=== PATIENT | female | born 1980 | race Caucasian/White ===

== ENCOUNTER 2019-01-03 14:00 | Inpatient (IN) | payer OTHER ==
[~2019-01-03] VITALS: Ht 170.2 cm; Wt 97.5 kg
[2019-01-03 14:00] VITALS: BP 118/68
[2019-01-03 15:00] VITALS: BP 119/91
[2019-01-03 15:11] VITALS: BP 118/68
[2019-01-03] MEDS ORDERED: INFLUENZA VIRUS VACCINE QVS 2019-20 (3YR+)/PF 60 MCG/0.5 ML SYRINGE IM ONE (17:15)
[2019-01-03] MEDS ORDERED: ClonazePAM 1 MG TABLET PO PRN (17:15)
[2019-01-03] MEDS ORDERED: ZOLPIDEM TARTRATE 5 MG TABLET PO PRN (17:15)
[2019-01-03] MEDS ORDERED: NALOXONE HCL 0.4 MG/ML VIAL IVP PRN (17:30)
[2019-01-03] MEDS: OxyCODONE HCL 10 MG IR TABLET PO PRN ×2 (17:44→21:57)
[2019-01-03] MEDS ORDERED: NITROFURANTOIN MACROCRYSTAL 100 MG CAPSULE PO ONE (19:45)
[2019-01-03] MEDS: METHOCARBAMOL 750 MG TABLET PO SCH (20:11)
[2019-01-03] MEDS: LevETIRAcetam 500 MG TABLET PO SCH (20:11)
[2019-01-03] MEDS: PRAZOSIN HCL 1 MG CAPSULE PO SCH ×2 (20:12→21:00)
[2019-01-03] MEDS: GABAPENTIN 400 MG CAPSULE PO SCH (20:12)
[2019-01-03] MEDS: AMITRIPTYLINE HCL 50 MG TABLET PO SCH (20:13)
[2019-01-03] MEDS: ClonazePAM 1 MG TABLET PO SCH (20:16)
[2019-01-03] MEDS: OxyCODONE HCL 10 MG ER TABLET PO SCH (20:17)
[2019-01-03] MEDS ORDERED: NITROFURANTOIN MACROCRYSTAL 50 MG CAPSULE PO SCH (21:00)
[2019-01-03] MEDS: SENNA 187 MG TABLET PO SCH (21:00)
[2019-01-03] MEDS: DOCUSATE SODIUM 100 MG CAPSULE PO SCH (21:00)
[2019-01-04] MEDS: 0.9% SODIUM CHLORIDE 10 ML SYRINGE IVP SCH ×3 (00:07→16:00)
[2019-01-04 00:30] VITALS: BP 113/72
[2019-01-04] MEDS: OxyCODONE HCL 10 MG IR TABLET PO PRN ×4 (02:38→18:05)
[2019-01-04 07:38] LABS: BASOPHILS % (AUTO) 1.4 % (0.0-2.0); EOSINOPHILS % (AUTO) 4.4 % (1.0-6.0); HEMATOCRIT 41.2 % (36-46); HEMOGLOBIN 13.6 g/dL (12.0-16.0); LYMPHOCYTES % (AUTO) 51.1 % (22.0-44.0); MEAN CORPUSCULAR HEMOGLOBIN 27.5 pg (26.0-34.0); MEAN CORPUSCULAR HGB CONC 32.9 G/dL (31.0-37.0); MEAN CORPUSCULAR VOLUME 83 fL (80-100); MONOCYTES # (AUTO) 0.3 K/uL (0.1-1.0); MONOCYTES % (AUTO) 7.9 % (2.0-9.0); NEUTROPHILS # (AUTO) 1.4 K/uL (1.8-7.7); NEUTROPHILS % (AUTO) 35.2 % (40.0-70.0); PLATELET COUNT (AUTO) 245 K/uL (150-450); RED BLOOD CELL COUNT(AUTO) 4.94 MIL/uL (4.00-5.20); RED CELL DISTRIBUTION WIDTH 15.1 % (11.5-14.5)
[2019-01-04 07:53] LABS: ALANINE AMINOTRANSFERASE 26 U/L (12-78); ALBUMIN 3.8 g/dL (3.4-5.0); ALKALINE PHOSPHATASE 92 U/L (46-116); ANION GAP 7 mmol/L (8-16); ASPARTATE AMINOTRANSFERASE 23 U/L (15-37); BILIRUBIN,TOTAL 0.3 mg/dL (0.1-1.0); CARBON DIOXIDE 27 mmol/L (22-29); CHLORIDE 103 mmol/L (98-107); CREATININE 0.98 mg/dL (0.60-1.30); GLOMERULAR FILTR. RATE CALC > 60 mL/min (>60); GLUCOSE,RANDOM 95 mg/dL (70-110); SODIUM SERUM 137 mmol/L (136-145); TOTAL PROTEIN, SERUM 7.8 g/dL (6.4-8.2); UREA NITROGEN, BLOOD 15 mg/dL (7-18)
[2019-01-04 08:02] VITALS: BP 91/60
[2019-01-04] MEDS: OxyCODONE HCL 10 MG ER TABLET PO SCH ×2 (08:06→20:38)
[2019-01-04] MEDS: GABAPENTIN 400 MG CAPSULE PO SCH ×4 (08:06→20:38)
[2019-01-04] MEDS: ESCITALOPRAM OXALATE 10 MG TABLET PO SCH (08:07)
[2019-01-04] MEDS: LevETIRAcetam 500 MG TABLET PO SCH ×2 (08:07→20:38)
[2019-01-04] MEDS: METHOCARBAMOL 750 MG TABLET PO SCH ×4 (08:07→20:38)
[2019-01-04] MEDS: ClonazePAM 1 MG TABLET PO SCH ×2 (08:08→20:38)
[2019-01-04] MEDS: DOCUSATE SODIUM 100 MG CAPSULE PO SCH ×2 (08:12→21:00)
[2019-01-04] MEDS ORDERED: HYDROmorphone HCL 2 MG TABLET PO ONE (10:00)
[2019-01-04 16:00] VITALS: BP 102/54
[2019-01-04] MEDS: NITROFURANTOIN MACROCRYSTAL 50 MG CAPSULE PO SCH (20:37)
[2019-01-04] MEDS: AMITRIPTYLINE HCL 50 MG TABLET PO SCH (20:38)
[2019-01-04] MEDS: PRAZOSIN HCL 1 MG CAPSULE PO SCH (21:00)
[2019-01-04] MEDS: SENNA 187 MG TABLET PO SCH (21:00)
[2019-01-04 21:03] LABS: APPEARANCE,URINE CLOUDY (CLEAR); BILIRUBIN,URINE NEGATIVE (NEGATIVE); GLUCOSE, URINE (UA) NEGATIVE (NEGATIVE); KETONES,URINE NEGATIVE (NEGATIVE); LEUKOCYTE ESTERASE ,URINE MODERATE (NEGATIVE); NITRATE,URINE NEGATIVE (NEGATIVE); OCCULT BLOOD,URINE LARGE (NEGATIVE); PROTEIN,URINE NEGATIVE (NEGATIVE); UROBILINOGEN,URINE 0.2 mg/dL (<=1.0)
[2019-01-04 21:04] LABS: BACTERIA,URINE Few /HPF (None Seen); RBC,URINE 26-50 /HPF (0-2); SQUAMOUS EPITHELIAL CELL,UR Moderate /LPF (None Seen)
[2019-01-04] MEDS: HYDROmorphone HCL 2 MG TABLET PO PRN (21:15)
[2019-01-05 05:42] VITALS: BP 100/55
[2019-01-05] MEDS: HYDROmorphone HCL 2 MG TABLET PO PRN ×4 (05:42→20:51)
[2019-01-05 08:30] VITALS: BP 101/69
[2019-01-05] MEDS: ClonazePAM 1 MG TABLET PO SCH ×2 (08:34→20:14)
[2019-01-05] MEDS: METHOCARBAMOL 750 MG TABLET PO SCH ×4 (08:35→20:14)
[2019-01-05] MEDS: GABAPENTIN 400 MG CAPSULE PO SCH ×4 (08:36→20:12)
[2019-01-05] MEDS: OxyCODONE HCL 10 MG ER TABLET PO SCH ×2 (08:36→20:14)
[2019-01-05] MEDS: ESCITALOPRAM OXALATE 10 MG TABLET PO SCH (08:36)
[2019-01-05] MEDS: LevETIRAcetam 500 MG TABLET PO SCH ×2 (08:36→20:13)
[2019-01-05] MEDS: ACETAMINOPHEN 325 MG TABLET PO PRN (08:37)
[2019-01-05] MEDS: LIDOCAINE 5% TRANSDERMAL PATCH TD SCH (08:37)
[2019-01-05] MEDS: DOCUSATE SODIUM 100 MG CAPSULE PO SCH ×2 (09:00→20:19)
[2019-01-05] MEDS ORDERED: LIDOCAINE 1% 10 ML VIAL INJ ONE (12:30)
[2019-01-05] MEDS ORDERED: BUPIVACAINE HCL/PF 0.5% 10 ML VIAL INJ ONE (12:30)
[2019-01-05] MEDS ORDERED: TRIAMCINOLONE ACETONIDE 40 MG/ML VIAL IM ONE (12:30)
[2019-01-05 16:15] VITALS: BP 107/67
[2019-01-05 20:10] VITALS: BP 105/64
[2019-01-05] MEDS: NITROFURANTOIN MACROCRYSTAL 50 MG CAPSULE PO SCH (20:13)
[2019-01-05] MEDS: AMITRIPTYLINE HCL 50 MG TABLET PO SCH (20:13)
[2019-01-05] MEDS: -LIDODERM PATCH NOTE- MISC SCH (20:15)
[2019-01-05] MEDS: SENNA 187 MG TABLET PO SCH (20:19)
[2019-01-05] MEDS: PRAZOSIN HCL 1 MG CAPSULE PO SCH (20:19)
[2019-01-06 01:16] VITALS: BP 117/73
[2019-01-06] MEDS: HYDROmorphone HCL 2 MG TABLET PO PRN ×5 (01:16→21:51)
[2019-01-06] MEDS: GABAPENTIN 400 MG CAPSULE PO SCH ×4 (08:22→20:56)
[2019-01-06] MEDS: ESCITALOPRAM OXALATE 10 MG TABLET PO SCH (08:22)
[2019-01-06] MEDS: ClonazePAM 1 MG TABLET PO SCH ×2 (08:22→20:47)
[2019-01-06] MEDS: OxyCODONE HCL 10 MG ER TABLET PO SCH ×2 (08:22→20:48)
[2019-01-06] MEDS: LevETIRAcetam 500 MG TABLET PO SCH ×2 (08:22→20:48)
[2019-01-06] MEDS: LIDOCAINE 5% TRANSDERMAL PATCH TD SCH (08:23)
[2019-01-06] MEDS: METHOCARBAMOL 750 MG TABLET PO SCH ×4 (08:23→20:47)
[2019-01-06] MEDS: DOCUSATE SODIUM 100 MG CAPSULE PO SCH ×2 (08:26→20:48)
[2019-01-06 15:59] VITALS: BP 114/53
[2019-01-06] MEDS: NITROFURANTOIN MACROCRYSTAL 50 MG CAPSULE PO SCH (20:48)
[2019-01-06] MEDS: AMITRIPTYLINE HCL 50 MG TABLET PO SCH (20:48)
[2019-01-06] MEDS: SENNA 187 MG TABLET PO SCH (20:49)
[2019-01-06] MEDS: PRAZOSIN HCL 1 MG CAPSULE PO SCH (20:50)
[2019-01-06] MEDS: -LIDODERM PATCH NOTE- MISC SCH (21:00)
[2019-01-06] MEDS ORDERED: PredniSONE 20 MG TABLET PO ONE (21:30)
[2019-01-06] MEDS ORDERED: LORazepam 2 MG/ML VIAL IVP PRN (21:30)
[2019-01-07] MEDS: 0.9% SODIUM CHLORIDE 10 ML SYRINGE IVP SCH ×3 (00:39→19:03)
[2019-01-07 00:46] VITALS: BP 100/71
[2019-01-07] MEDS: HYDROmorphone HCL 2 MG TABLET PO PRN ×5 (04:02→21:35)
[2019-01-07] MEDS ORDERED: LORazepam 2 MG/ML VIAL IVP ONE ×2 (06:00→14:45)
[2019-01-07 07:33] VITALS: BP 90/65
[2019-01-07] MEDS: ClonazePAM 1 MG TABLET PO SCH ×2 (07:52→20:20)
[2019-01-07] MEDS: OxyCODONE HCL 10 MG ER TABLET PO SCH ×2 (07:53→20:20)
[2019-01-07] MEDS: LevETIRAcetam 500 MG TABLET PO SCH ×2 (07:53→20:20)
[2019-01-07] MEDS: GABAPENTIN 400 MG CAPSULE PO SCH ×4 (07:53→20:20)
[2019-01-07] MEDS: METHOCARBAMOL 750 MG TABLET PO SCH ×4 (07:53→20:20)
[2019-01-07] MEDS: ESCITALOPRAM OXALATE 10 MG TABLET PO SCH (07:53)
[2019-01-07] MEDS: LIDOCAINE 5% TRANSDERMAL PATCH TD SCH (07:54)
[2019-01-07] MEDS: DOCUSATE SODIUM 100 MG CAPSULE PO SCH ×2 (09:00→20:20)
[2019-01-07] MEDS ORDERED: GADOBUTROL 1 MMOL/ML 10 ML VIAL IVP ONE (09:17)
[2019-01-07] MEDS ORDERED: MethylPREDNISolone SOD SUCC 1,000 MG in SODIUM CHLORIDE 0.9% 50 ML IV SCH (14:00)
[2019-01-07] MEDS ORDERED: SODIUM CHLORIDE 0.9% 100 ML ONE (18:54)
[2019-01-07] MEDS: MethylPREDNISolone SOD SUCC 1,000 MG in SODIUM CHLORIDE 0.9% 50 ML IV SCH (19:03)
[2019-01-07 19:42] VITALS: BP 114/79
[2019-01-07] MEDS: AMITRIPTYLINE HCL 50 MG TABLET PO SCH (20:20)
[2019-01-07] MEDS: NITROFURANTOIN MACROCRYSTAL 50 MG CAPSULE PO SCH (20:20)
[2019-01-07] MEDS: -LIDODERM PATCH NOTE- MISC SCH (20:20)
[2019-01-07] MEDS: SENNA 187 MG TABLET PO SCH (20:21)
[2019-01-07] MEDS: PRAZOSIN HCL 1 MG CAPSULE PO SCH (20:21)
[2019-01-08] MEDS: HYDROmorphone HCL 2 MG TABLET PO PRN ×6 (01:36→22:34)
[2019-01-08] MEDS: 0.9% SODIUM CHLORIDE 10 ML SYRINGE IVP SCH ×4 (01:37→22:41)
[2019-01-08 07:30] VITALS: BP 109/68
[2019-01-08] MEDS: ClonazePAM 1 MG TABLET PO SCH ×2 (08:24→20:48)
[2019-01-08] MEDS: LevETIRAcetam 500 MG TABLET PO SCH ×2 (08:24→20:48)
[2019-01-08] MEDS: GABAPENTIN 400 MG CAPSULE PO SCH ×4 (08:24→20:48)
[2019-01-08] MEDS: OxyCODONE HCL 10 MG ER TABLET PO SCH ×2 (08:24→20:49)
[2019-01-08] MEDS: ESCITALOPRAM OXALATE 10 MG TABLET PO SCH (08:24)
[2019-01-08] MEDS: METHOCARBAMOL 750 MG TABLET PO SCH ×4 (08:24→20:48)
[2019-01-08] MEDS: LIDOCAINE 5% TRANSDERMAL PATCH TD SCH (08:25)
[2019-01-08] MEDS: DOCUSATE SODIUM 100 MG CAPSULE PO SCH ×2 (08:28→20:50)
[2019-01-08] MEDS ORDERED: GADOBUTROL 1 MMOL/ML 10 ML VIAL IVP ONE (08:28)
[2019-01-08] MEDS ORDERED: LORazepam 2 MG/ML VIAL IVP ONE (10:00)
[2019-01-08 16:20] VITALS: BP 112/82
[2019-01-08] MEDS: ACETAMINOPHEN 325 MG TABLET PO PRN (16:33)
[2019-01-08] MEDS: MethylPREDNISolone SOD SUCC 1,000 MG in SODIUM CHLORIDE 0.9% 50 ML IV SCH (17:15)
[2019-01-08] MEDS: NITROFURANTOIN MACROCRYSTAL 50 MG CAPSULE PO SCH (20:48)
[2019-01-08] MEDS: AMITRIPTYLINE HCL 50 MG TABLET PO SCH (20:48)
[2019-01-08] MEDS: -LIDODERM PATCH NOTE- MISC SCH (20:49)
[2019-01-08] MEDS: SENNA 187 MG TABLET PO SCH (20:49)
[2019-01-08] MEDS: PRAZOSIN HCL 1 MG CAPSULE PO SCH (20:50)
[2019-01-08 23:41] VITALS: BP 104/61
[2019-01-09] MEDS: HYDROmorphone HCL 2 MG TABLET PO PRN ×5 (04:09→22:17)
[2019-01-09 06:15] LABS: BASOPHILS % (AUTO) 0.1 % (0.0-2.0); EOSINOPHILS % (AUTO) 0 % (1.0-6.0); HEMATOCRIT 37.6 % (36-46); HEMOGLOBIN 12.6 g/dL (12.0-16.0); LYMPHOCYTES # (AUTO) 0.5 K/uL (1.0-4.8); LYMPHOCYTES % (AUTO) 5.4 % (22.0-44.0); MEAN CORPUSCULAR HGB CONC 33.5 G/dL (31.0-37.0); MEAN CORPUSCULAR VOLUME 84 fL (80-100); MONOCYTES # (AUTO) 0.1 K/uL (0.1-1.0); PLATELET COUNT (AUTO) 231 K/uL (150-450); RED CELL DISTRIBUTION WIDTH 14.5 % (11.5-14.5)
[2019-01-09 06:22] LABS: NEUTROPHILS % (AUTO) 93.5 % (40.0-70.0)
[2019-01-09 06:29] LABS: ANION GAP 11 mmol/L (8-16); CALCIUM, TOTAL 8.9 mg/dL (8.8-10.5); CARBON DIOXIDE 25 mmol/L (22-29); CHLORIDE 103 mmol/L (98-107); CREATININE 0.97 mg/dL (0.60-1.30); GLOMERULAR FILTR. RATE CALC > 60 mL/min (>60); GLUCOSE,RANDOM 190 mg/dL (70-110); POTASSIUM 4.1 mmol/L (3.5-5.1); SODIUM SERUM 139 mmol/L (136-145); UREA NITROGEN, BLOOD 11 mg/dL (7-18)
[2019-01-09] MEDS: ERGOCALCIFEROL (VIT D2) 50,000 UNITS CAPSULE PO SCH (08:44)
[2019-01-09] MEDS: METHOCARBAMOL 750 MG TABLET PO SCH ×4 (08:44→21:29)
[2019-01-09] MEDS: ESCITALOPRAM OXALATE 10 MG TABLET PO SCH (08:44)
[2019-01-09 08:45] VITALS: BP 105/52
[2019-01-09] MEDS: LevETIRAcetam 500 MG TABLET PO SCH ×2 (08:45→21:30)
[2019-01-09] MEDS: ClonazePAM 1 MG TABLET PO SCH ×2 (08:45→21:29)
[2019-01-09] MEDS: GABAPENTIN 400 MG CAPSULE PO SCH ×4 (08:45→21:30)
[2019-01-09] MEDS: FLUCONAZOLE 100 MG TABLET PO SCH (08:45)
[2019-01-09] MEDS: LIDOCAINE 5% TRANSDERMAL PATCH TD SCH (08:47)
[2019-01-09] MEDS: OxyCODONE HCL 10 MG ER TABLET PO SCH ×2 (08:47→21:30)
[2019-01-09] MEDS: 0.9% SODIUM CHLORIDE 10 ML SYRINGE IVP SCH ×3 (08:48→22:39)
[2019-01-09 08:52] LABS: APPEARANCE,URINE CLEAR (CLEAR); BILIRUBIN,URINE NEGATIVE (NEGATIVE); GLUCOSE, URINE (UA) 100 mg/dL (NEGATIVE); KETONES,URINE NEGATIVE (NEGATIVE); NITRATE,URINE NEGATIVE (NEGATIVE); OCCULT BLOOD,URINE NEGATIVE (NEGATIVE); PH,URINE 5.5 (5.0-8.0); PROTEIN,URINE NEGATIVE (NEGATIVE); UROBILINOGEN,URINE 0.2 mg/dL (<=1.0)
[2019-01-09 08:54] LABS: BACTERIA,URINE None Seen /HPF (None Seen); LEUKOCYTE ESTERASE ,URINE SMALL (NEGATIVE); RBC,URINE None Seen /HPF (0-2); SQUAMOUS EPITHELIAL CELL,UR Rare /LPF (None Seen)
[2019-01-09] MEDS: DOCUSATE SODIUM 100 MG CAPSULE PO SCH ×2 (09:00→21:00)
[2019-01-09 15:20] VITALS: BP 103/59
[2019-01-09] MEDS: MethylPREDNISolone SOD SUCC 1,000 MG in SODIUM CHLORIDE 0.9% 50 ML IV SCH (16:20)
[2019-01-09] MEDS ORDERED: SODIUM CHLORIDE 0.9% 100 ML ONE (16:23)
[2019-01-09] MEDS: SENNA 187 MG TABLET PO SCH (21:00)
[2019-01-09] MEDS: PRAZOSIN HCL 1 MG CAPSULE PO SCH (21:00)
[2019-01-09] MEDS: AMITRIPTYLINE HCL 50 MG TABLET PO SCH (21:29)
[2019-01-09] MEDS: NITROFURANTOIN MACROCRYSTAL 50 MG CAPSULE PO SCH (21:30)
[2019-01-09] MEDS: -LIDODERM PATCH NOTE- MISC SCH (21:30)
[2019-01-10] VITALS: BP 122/77
[2019-01-10] MEDS: HYDROmorphone HCL 2 MG TABLET PO PRN ×5 (03:43→21:10)
[2019-01-10 07:30] VITALS: BP 107/63
[2019-01-10] MEDS: OxyCODONE HCL 10 MG ER TABLET PO SCH ×2 (08:13→20:04)
[2019-01-10] MEDS: GABAPENTIN 400 MG CAPSULE PO SCH ×4 (08:13→20:05)
[2019-01-10] MEDS: METHOCARBAMOL 750 MG TABLET PO SCH ×4 (08:14→20:04)
[2019-01-10] MEDS: DOCUSATE SODIUM 100 MG CAPSULE PO SCH ×2 (08:14→20:03)
[2019-01-10] MEDS: LevETIRAcetam 500 MG TABLET PO SCH ×2 (08:14→20:05)
[2019-01-10] MEDS: ESCITALOPRAM OXALATE 10 MG TABLET PO SCH (08:14)
[2019-01-10] MEDS: LIDOCAINE 5% TRANSDERMAL PATCH TD SCH (08:15)
[2019-01-10] MEDS: ClonazePAM 1 MG TABLET PO SCH ×2 (08:19→20:04)
[2019-01-10] MEDS: 0.9% SODIUM CHLORIDE 10 ML SYRINGE IVP SCH ×2 (08:22→15:54)
[2019-01-10] MEDS: FLUCONAZOLE 100 MG TABLET PO SCH (08:48)
[2019-01-10 15:50] VITALS: BP 136/84
[2019-01-10] MEDS: -LIDODERM PATCH NOTE- MISC SCH (20:02)
[2019-01-10] MEDS: PRAZOSIN HCL 1 MG CAPSULE PO SCH (20:03)
[2019-01-10] MEDS: SENNA 187 MG TABLET PO SCH (20:04)
[2019-01-10] MEDS: AMITRIPTYLINE HCL 50 MG TABLET PO SCH (20:04)
[2019-01-10] MEDS: NITROFURANTOIN MACROCRYSTAL 50 MG CAPSULE PO SCH (20:05)
[2019-01-11 01:52] VITALS: BP 116/71
[2019-01-11] MEDS: 0.9% SODIUM CHLORIDE 10 ML SYRINGE IVP SCH ×3 (01:57→15:54)
[2019-01-11 07:45] VITALS: BP 105/78
[2019-01-11] MEDS: LIDOCAINE 5% TRANSDERMAL PATCH TD SCH (08:05)
[2019-01-11] MEDS: ClonazePAM 1 MG TABLET PO SCH ×2 (08:05→20:11)
[2019-01-11] MEDS: METHOCARBAMOL 750 MG TABLET PO SCH ×4 (08:05→20:04)
[2019-01-11] MEDS: GABAPENTIN 400 MG CAPSULE PO SCH ×4 (08:06→20:11)
[2019-01-11] MEDS: MULTIVITAMINS WITH MINERALS, THERAPEUTIC TABLET PO SCH (08:06)
[2019-01-11] MEDS: FLUCONAZOLE 100 MG TABLET PO SCH (08:06)
[2019-01-11] MEDS: LevETIRAcetam 500 MG TABLET PO SCH ×2 (08:06→20:05)
[2019-01-11] MEDS: ESCITALOPRAM OXALATE 10 MG TABLET PO SCH (08:06)
[2019-01-11] MEDS: ACETAMINOPHEN 325 MG TABLET PO PRN (08:07)
[2019-01-11] MEDS: OxyCODONE HCL 10 MG ER TABLET PO SCH ×2 (08:07→20:04)
[2019-01-11 08:24] LABS: BASOPHILS % (AUTO) 0.4 % (0.0-2.0); CALCIUM, TOTAL 8.4 mg/dL (8.8-10.5); CREATININE 1.07 mg/dL (0.60-1.30); EOSINOPHILS % (AUTO) 0.2 % (1.0-6.0); HEMATOCRIT 37.6 % (36-46); HEMOGLOBIN 12.7 g/dL (12.0-16.0); LYMPHOCYTES # (AUTO) 1.2 K/uL (1.0-4.8); MEAN CORPUSCULAR HEMOGLOBIN 28.2 pg (26.0-34.0); MEAN CORPUSCULAR HGB CONC 33.8 G/dL (31.0-37.0); MEAN CORPUSCULAR VOLUME 83 fL (80-100); MONOCYTES # (AUTO) 0.9 K/uL (0.1-1.0); MONOCYTES % (AUTO) 13.3 % (2.0-9.0); NEUTROPHILS # (AUTO) 4.5 K/uL (1.8-7.7); NEUTROPHILS % (AUTO) 68.1 % (40.0-70.0); PLATELET COUNT (AUTO) 189 K/uL (150-450); POTASSIUM 3.9 mmol/L (3.5-5.1); RED BLOOD CELL COUNT(AUTO) 4.51 MIL/uL (4.00-5.20); RED CELL DISTRIBUTION WIDTH 14.7 % (11.5-14.5)
[2019-01-11 08:30] LABS: ALBUMIN 3.4 g/dL (3.4-5.0); BILIRUBIN,TOTAL 0.2 mg/dL (0.1-1.0); C-REACTIVE PROTEIN QUANT 3.32 mg/dL (0.00-0.30); TOTAL PROTEIN, SERUM 7.2 g/dL (6.4-8.2)
[2019-01-11] MEDS: DOCUSATE SODIUM 100 MG CAPSULE PO SCH ×2 (09:00→21:00)
[2019-01-11 09:45] LABS: ERYTHROCYTE SEDIMENTATION RATE 20 MM/HR (0-20)
[2019-01-11 13:40] LABS: APPEARANCE,URINE CLEAR (CLEAR); BILIRUBIN,URINE NEGATIVE (NEGATIVE); GLUCOSE, URINE (UA) NEGATIVE (NEGATIVE); KETONES,URINE NEGATIVE (NEGATIVE); LEUKOCYTE ESTERASE ,URINE SMALL (NEGATIVE); NITRATE,URINE NEGATIVE (NEGATIVE); OCCULT BLOOD,URINE SMALL (NEGATIVE); PROTEIN,URINE NEGATIVE (NEGATIVE); UROBILINOGEN,URINE 0.2 mg/dL (<=1.0)
[2019-01-11 13:54] LABS: BACTERIA,URINE None Seen /HPF (None Seen); RBC,URINE 0-2 /HPF (0-2); SQUAMOUS EPITHELIAL CELL,UR Few /LPF (None Seen)
[2019-01-11] MEDS: SULFAMETHOX/TRIMETH DS 800-160 MG/TABLET PO SCH ×2 (15:48→20:04)
[2019-01-11 15:49] VITALS: BP 95/53
[2019-01-11] MEDS: AMITRIPTYLINE HCL 50 MG TABLET PO SCH (20:04)
[2019-01-11] MEDS: PRAZOSIN HCL 1 MG CAPSULE PO SCH (21:00)
[2019-01-11] MEDS: SENNA 187 MG TABLET PO SCH (21:00)
[2019-01-11] MEDS: NITROFURANTOIN MACROCRYSTAL 50 MG CAPSULE PO SCH (21:20)
[2019-01-11] MEDS: -LIDODERM PATCH NOTE- MISC SCH (21:22)
[2019-01-12 00:03] VITALS: BP 112/65
[2019-01-12] MEDS: 0.9% SODIUM CHLORIDE 10 ML SYRINGE IVP SCH ×4 (00:03→23:12)
[2019-01-12] MEDS: ACETAMINOPHEN 325 MG TABLET PO PRN ×3 (00:03→22:22)
[2019-01-12 08:00] VITALS: BP 101/68
[2019-01-12] MEDS: LevETIRAcetam 500 MG TABLET PO SCH ×2 (08:35→20:12)
[2019-01-12] MEDS: MULTIVITAMINS WITH MINERALS, THERAPEUTIC TABLET PO SCH (08:35)
[2019-01-12] MEDS: GABAPENTIN 400 MG CAPSULE PO SCH ×4 (08:35→20:12)
[2019-01-12] MEDS: OxyCODONE HCL 10 MG ER TABLET PO SCH ×2 (08:36→20:21)
[2019-01-12] MEDS: METHOCARBAMOL 750 MG TABLET PO SCH ×4 (08:36→20:10)
[2019-01-12] MEDS: ClonazePAM 1 MG TABLET PO SCH ×2 (08:36→20:20)
[2019-01-12] MEDS: ESCITALOPRAM OXALATE 10 MG TABLET PO SCH (08:36)
[2019-01-12] MEDS: LIDOCAINE 5% TRANSDERMAL PATCH TD SCH (08:37)
[2019-01-12] MEDS: DOCUSATE SODIUM 100 MG CAPSULE PO SCH ×2 (09:00→20:21)
[2019-01-12] MEDS: SULFAMETHOX/TRIMETH DS 800-160 MG/TABLET PO SCH ×2 (09:23→20:11)
[2019-01-12 16:01] VITALS: BP 105/64
[2019-01-12 16:49] VITALS: BP 99/66
[2019-01-12 20:07] VITALS: BP 104/50
[2019-01-12] MEDS: -LIDODERM PATCH NOTE- MISC SCH (20:10)
[2019-01-12] MEDS: AMITRIPTYLINE HCL 50 MG TABLET PO SCH (20:12)
[2019-01-12] MEDS: NITROFURANTOIN MACROCRYSTAL 50 MG CAPSULE PO SCH (20:12)
[2019-01-12] MEDS: PRAZOSIN HCL 1 MG CAPSULE PO SCH (20:21)
[2019-01-12] MEDS: SENNA 187 MG TABLET PO SCH (20:21)
[2019-01-12 23:06] VITALS: BP 118/64
[2019-01-13] MEDS ORDERED: LORazepam 2 MG/ML VIAL IVP ONE (07:00)
[2019-01-13 07:22] VITALS: BP 103/71
[2019-01-13] MEDS: LevETIRAcetam 500 MG TABLET PO SCH ×2 (08:20→20:13)
[2019-01-13] MEDS: MULTIVITAMINS WITH MINERALS, THERAPEUTIC TABLET PO SCH (08:20)
[2019-01-13] MEDS: SULFAMETHOX/TRIMETH DS 800-160 MG/TABLET PO SCH ×2 (08:20→20:13)
[2019-01-13] MEDS: OxyCODONE HCL 10 MG ER TABLET PO SCH ×2 (08:21→20:14)
[2019-01-13] MEDS: METHOCARBAMOL 750 MG TABLET PO SCH ×4 (08:21→20:14)
[2019-01-13] MEDS: ESCITALOPRAM OXALATE 10 MG TABLET PO SCH (08:21)
[2019-01-13] MEDS: LIDOCAINE 5% TRANSDERMAL PATCH TD SCH (08:22)
[2019-01-13] MEDS: GABAPENTIN 400 MG CAPSULE PO SCH ×4 (08:22→20:14)
[2019-01-13] MEDS: ClonazePAM 1 MG TABLET PO SCH ×2 (08:24→20:13)
[2019-01-13] MEDS: DOCUSATE SODIUM 100 MG CAPSULE PO SCH ×2 (08:32→20:17)
[2019-01-13] MEDS: 0.9% SODIUM CHLORIDE 10 ML SYRINGE IVP SCH ×3 (08:35→23:46)
[2019-01-13] MEDS ORDERED: GADOBUTROL 1 MMOL/ML 10 ML VIAL IVP ONE (09:35)
[2019-01-13 16:20] VITALS: BP 102/73
[2019-01-13] MEDS: ACETAMINOPHEN 325 MG TABLET PO PRN (19:24)
[2019-01-13] MEDS: -LIDODERM PATCH NOTE- MISC SCH (20:12)
[2019-01-13] MEDS: AMITRIPTYLINE HCL 50 MG TABLET PO SCH (20:13)
[2019-01-13] MEDS: NITROFURANTOIN MACROCRYSTAL 50 MG CAPSULE PO SCH (20:14)
[2019-01-13] MEDS: PRAZOSIN HCL 1 MG CAPSULE PO SCH (20:17)
[2019-01-13] MEDS: SENNA 187 MG TABLET PO SCH (20:17)
[2019-01-14] VITALS: BP 98/54
[2019-01-14] MEDS: ACETAMINOPHEN 325 MG TABLET PO PRN (04:38)
[2019-01-14 07:23] VITALS: BP 92/54
[2019-01-14] MEDS: GABAPENTIN 400 MG CAPSULE PO SCH ×4 (08:38→20:26)
[2019-01-14] MEDS: MULTIVITAMINS WITH MINERALS, THERAPEUTIC TABLET PO SCH (08:38)
[2019-01-14] MEDS: ClonazePAM 1 MG TABLET PO SCH ×2 (08:38→20:26)
[2019-01-14] MEDS: SULFAMETHOX/TRIMETH DS 800-160 MG/TABLET PO SCH (08:38)
[2019-01-14] MEDS: LevETIRAcetam 500 MG TABLET PO SCH ×2 (08:39→20:26)
[2019-01-14] MEDS: METHOCARBAMOL 750 MG TABLET PO SCH ×4 (08:39→20:26)
[2019-01-14] MEDS: OxyCODONE HCL 10 MG ER TABLET PO SCH ×2 (08:39→20:26)
[2019-01-14] MEDS: ESCITALOPRAM OXALATE 10 MG TABLET PO SCH (08:39)
[2019-01-14] MEDS: LIDOCAINE 5% TRANSDERMAL PATCH TD SCH (08:40)
[2019-01-14] MEDS: 0.9% SODIUM CHLORIDE 10 ML SYRINGE IVP SCH ×3 (08:48→23:28)
[2019-01-14] MEDS: DOCUSATE SODIUM 100 MG CAPSULE PO SCH ×2 (08:48→20:25)
[2019-01-14] MEDS ORDERED: VANCOMYCIN HCL 1.5 GM in DEXTROSE 5%-WATER 250 ML IV ONE (13:00)
[2019-01-14] MEDS ORDERED: SODIUM CHLORIDE 0.9% 250 ML IV ONE (16:02)
[2019-01-14 16:15] VITALS: BP 106/73
[2019-01-14] MEDS: -LIDODERM PATCH NOTE- MISC SCH (20:25)
[2019-01-14] MEDS: PRAZOSIN HCL 1 MG CAPSULE PO SCH (20:25)
[2019-01-14] MEDS: SENNA 187 MG TABLET PO SCH (20:25)
[2019-01-14] MEDS: AMITRIPTYLINE HCL 50 MG TABLET PO SCH (20:26)
[2019-01-14] MEDS: NITROFURANTOIN MACROCRYSTAL 50 MG CAPSULE PO SCH (20:26)
[2019-01-14 23:10] VITALS: BP 124/68
[2019-01-14] MEDS: VANCOMYCIN HCL 1 GM/D5% WATER 200 ML IV SCH (23:28)
[2019-01-15] MEDS: VANCOMYCIN HCL 1 GM/D5% WATER 200 ML IV SCH ×3 (06:28→22:29)
[2019-01-15 07:00] LABS: BASOPHILS % (AUTO) 1.1 % (0.0-2.0); EOSINOPHILS % (AUTO) 2.9 % (1.0-6.0); HEMATOCRIT 33.7 % (36-46); HEMOGLOBIN 11.3 g/dL (12.0-16.0); LYMPHOCYTES # (AUTO) 2.2 K/uL (1.0-4.8); LYMPHOCYTES % (AUTO) 31.1 % (22.0-44.0); MEAN CORPUSCULAR HEMOGLOBIN 27.8 pg (26.0-34.0); MEAN CORPUSCULAR HGB CONC 33.6 G/dL (31.0-37.0); MEAN CORPUSCULAR VOLUME 83 fL (80-100); MONOCYTES % (AUTO) 13.3 % (2.0-9.0); NEUTROPHILS # (AUTO) 3.7 K/uL (1.8-7.7); NEUTROPHILS % (AUTO) 51.6 % (40.0-70.0); PLATELET COUNT (AUTO) 183 K/uL (150-450); RED BLOOD CELL COUNT(AUTO) 4.08 MIL/uL (4.00-5.20); RED CELL DISTRIBUTION WIDTH 14.5 % (11.5-14.5)
[2019-01-15 07:15] VITALS: BP 100/56
[2019-01-15 07:20] LABS: ANION GAP 7 mmol/L (8-16); CALCIUM, TOTAL 8.5 mg/dL (8.8-10.5); CARBON DIOXIDE 29 mmol/L (22-29); CHLORIDE 100 mmol/L (98-107); CREATININE 0.83 mg/dL (0.60-1.30); GLOMERULAR FILTR. RATE CALC > 60 mL/min (>60); GLUCOSE,RANDOM 91 mg/dL (70-110); POTASSIUM 4.8 mmol/L (3.5-5.1); SODIUM SERUM 136 mmol/L (136-145); UREA NITROGEN, BLOOD 9 mg/dL (7-18)
[2019-01-15] MEDS: OxyCODONE HCL 10 MG ER TABLET PO SCH ×2 (08:21→20:41)
[2019-01-15] MEDS: 0.9% SODIUM CHLORIDE 10 ML SYRINGE IVP SCH ×2 (08:21→16:00)
[2019-01-15] MEDS: METHOCARBAMOL 750 MG TABLET PO SCH ×4 (08:21→20:40)
[2019-01-15] MEDS: GABAPENTIN 400 MG CAPSULE PO SCH ×4 (08:22→20:40)
[2019-01-15] MEDS: MULTIVITAMINS WITH MINERALS, THERAPEUTIC TABLET PO SCH (08:22)
[2019-01-15] MEDS: ESCITALOPRAM OXALATE 10 MG TABLET PO SCH (08:22)
[2019-01-15] MEDS: LevETIRAcetam 500 MG TABLET PO SCH ×2 (08:22→20:39)
[2019-01-15] MEDS: ClonazePAM 1 MG TABLET PO SCH ×2 (08:22→20:40)
[2019-01-15] MEDS: DOCUSATE SODIUM 100 MG CAPSULE PO SCH ×2 (08:23→20:40)
[2019-01-15] MEDS: LIDOCAINE 5% TRANSDERMAL PATCH TD SCH (08:23)
[2019-01-15 15:37] VITALS: BP 104/62
[2019-01-15] MEDS ORDERED: SODIUM CHLORIDE 0.9% 100 ML ONE (15:41)
[2019-01-15 19:05] VITALS: BP 104/58
[2019-01-15] MEDS: AMITRIPTYLINE HCL 50 MG TABLET PO SCH (20:39)
[2019-01-15] MEDS: NITROFURANTOIN MACROCRYSTAL 50 MG CAPSULE PO SCH (20:39)
[2019-01-15] MEDS: -LIDODERM PATCH NOTE- MISC SCH (20:40)
[2019-01-15] MEDS: SENNA 187 MG TABLET PO SCH (20:40)
[2019-01-15] MEDS: PRAZOSIN HCL 1 MG CAPSULE PO SCH (20:41)
[2019-01-15] MEDS ORDERED: SODIUM CHLORIDE 0.9% 250 ML IV ONE (22:15)
[2019-01-16 00:23] VITALS: BP 101/56
[2019-01-16] MEDS: 0.9% SODIUM CHLORIDE 10 ML SYRINGE IVP SCH ×3 (00:23→16:32)
[2019-01-16] MEDS: VANCOMYCIN HCL 1 GM/D5% WATER 200 ML IV SCH ×2 (05:49→16:32)
[2019-01-16 06:23] LABS: ANION GAP 7 mmol/L (8-16); CALCIUM, TOTAL 8.9 mg/dL (8.8-10.5); CARBON DIOXIDE 27 mmol/L (22-29); CHLORIDE 102 mmol/L (98-107); CREATININE 0.76 mg/dL (0.60-1.30); GLOMERULAR FILTR. RATE CALC > 60 mL/min (>60); GLUCOSE,RANDOM 103 mg/dL (70-110); POTASSIUM 4.3 mmol/L (3.5-5.1); SODIUM SERUM 136 mmol/L (136-145); UREA NITROGEN, BLOOD 10 mg/dL (7-18); VANCOMYCIN,RANDOM 18.4 mcg/mL (25.0-50.0)
[2019-01-16 07:45] VITALS: BP 99/71
[2019-01-16] MEDS: LIDOCAINE 5% TRANSDERMAL PATCH TD SCH (08:51)
[2019-01-16] MEDS: METHOCARBAMOL 750 MG TABLET PO SCH ×3 (08:52→16:32)
[2019-01-16] MEDS: OxyCODONE HCL 10 MG ER TABLET PO SCH (08:52)
[2019-01-16] MEDS: ClonazePAM 1 MG TABLET PO SCH (08:52)
[2019-01-16] MEDS: ERGOCALCIFEROL (VIT D2) 50,000 UNITS CAPSULE PO SCH (08:52)
[2019-01-16] MEDS: ESCITALOPRAM OXALATE 10 MG TABLET PO SCH (08:53)
[2019-01-16] MEDS: DOCUSATE SODIUM 100 MG CAPSULE PO SCH (08:53)
[2019-01-16] MEDS: LevETIRAcetam 500 MG TABLET PO SCH (08:53)
[2019-01-16] MEDS: MULTIVITAMINS WITH MINERALS, THERAPEUTIC TABLET PO SCH (08:53)
[2019-01-16] MEDS: GABAPENTIN 400 MG CAPSULE PO SCH ×3 (09:06→16:32)
[2019-01-16 13:15] VITALS: BP 95/68
[2019-01-16 17:23] VITALS: BP 113/72
[2019-01-17] MEDS: -LIDODERM PATCH NOTE- MISC SCH ×2 (00:20→21:54)
[2019-01-17] MEDS: METHOCARBAMOL 750 MG TABLET PO SCH ×5 (00:20→21:50)
[2019-01-17] MEDS: GABAPENTIN 400 MG CAPSULE PO SCH ×5 (00:20→21:49)
[2019-01-17] MEDS: 0.9% SODIUM CHLORIDE 10 ML SYRINGE IVP SCH ×3 (00:20→17:38)
[2019-01-17] MEDS: VANCOMYCIN HCL 1 GM/D5% WATER 200 ML IV SCH ×4 (00:20→23:24)
[2019-01-17] MEDS: ClonazePAM 1 MG TABLET PO SCH ×3 (00:20→21:38)
[2019-01-17] MEDS: NITROFURANTOIN MACROCRYSTAL 50 MG CAPSULE PO SCH ×2 (00:20→21:48)
[2019-01-17] MEDS: OxyCODONE HCL 10 MG ER TABLET PO SCH ×3 (00:20→21:38)
[2019-01-17] MEDS: PRAZOSIN HCL 1 MG CAPSULE PO SCH ×2 (00:20→21:00)
[2019-01-17] MEDS: SENNA 187 MG TABLET PO SCH ×2 (00:20→21:00)
[2019-01-17] MEDS: LevETIRAcetam 500 MG TABLET PO SCH ×3 (00:20→21:38)
[2019-01-17] MEDS: DOCUSATE SODIUM 100 MG CAPSULE PO SCH ×3 (00:20→21:00)
[2019-01-17] MEDS: AMITRIPTYLINE HCL 50 MG TABLET PO SCH ×2 (00:20→21:48)
[2019-01-17 01:45] VITALS: BP 112/78
[2019-01-17 06:33] LABS: ANION GAP 8 mmol/L (8-16); CALCIUM, TOTAL 8.8 mg/dL (8.8-10.5); CARBON DIOXIDE 29 mmol/L (22-29); CHLORIDE 101 mmol/L (98-107); CREATININE 0.96 mg/dL (0.60-1.30); GLOMERULAR FILTR. RATE CALC > 60 mL/min (>60); GLUCOSE,RANDOM 97 mg/dL (70-110); SODIUM SERUM 138 mmol/L (136-145); UREA NITROGEN, BLOOD 10 mg/dL (7-18)
[2019-01-17] MEDS: ESCITALOPRAM OXALATE 10 MG TABLET PO SCH (08:45)
[2019-01-17] MEDS: LIDOCAINE 5% TRANSDERMAL PATCH TD SCH (08:45)
[2019-01-17] MEDS: MULTIVITAMINS WITH MINERALS, THERAPEUTIC TABLET PO SCH (08:46)
[2019-01-17] MEDS ORDERED: CHLORHEXIDINE GLUCONATE 4% 118 ML TOPICAL LIQUID TP SCH (09:00)
[2019-01-17 10:00] VITALS: BP 100/64
[2019-01-17 13:40] VITALS: BP 101/70
[2019-01-17 16:20] VITALS: BP 109/67
[2019-01-17] MEDS: CHLORHEXIDINE GLUCONATE 4% 118 ML TOPICAL LIQUID TP SCH (21:50)
[2019-01-18 01:30] VITALS: BP 104/68
[2019-01-18] MEDS: 0.9% SODIUM CHLORIDE 10 ML SYRINGE IVP SCH ×3 (01:38→16:31)
[2019-01-18] MEDS ORDERED: SODIUM CHLORIDE 0.9% 100 ML ONE ×2 (01:53→14:03)
[2019-01-18 06:09] LABS: ANION GAP 5 mmol/L (8-16); CALCIUM, TOTAL 8.2 mg/dL (8.8-10.5); CARBON DIOXIDE 29 mmol/L (22-29); CHLORIDE 102 mmol/L (98-107); GLOMERULAR FILTR. RATE CALC > 60 mL/min (>60); GLUCOSE,RANDOM 97 mg/dL (70-110); SODIUM SERUM 136 mmol/L (136-145); UREA NITROGEN, BLOOD 10 mg/dL (7-18); VANCOMYCIN,RANDOM 19.4 mcg/mL (25.0-50.0)
[2019-01-18] MEDS: VANCOMYCIN HCL 1 GM/D5% WATER 200 ML IV SCH ×3 (06:10→22:23)
[2019-01-18 06:58] VITALS: BP 106/54
[2019-01-18] MEDS: DOCUSATE SODIUM 100 MG CAPSULE PO SCH ×3 (08:19→20:40)
[2019-01-18] MEDS: ESCITALOPRAM OXALATE 10 MG TABLET PO SCH (08:19)
[2019-01-18] MEDS: MULTIVITAMINS WITH MINERALS, THERAPEUTIC TABLET PO SCH (08:20)
[2019-01-18] MEDS: METHOCARBAMOL 750 MG TABLET PO SCH ×4 (08:20→20:20)
[2019-01-18] MEDS: OxyCODONE HCL 10 MG ER TABLET PO SCH ×2 (08:20→20:20)
[2019-01-18] MEDS: LevETIRAcetam 500 MG TABLET PO SCH ×2 (08:20→20:20)
[2019-01-18] MEDS: GABAPENTIN 400 MG CAPSULE PO SCH ×4 (08:20→20:20)
[2019-01-18] MEDS: LIDOCAINE 5% TRANSDERMAL PATCH TD SCH (08:21)
[2019-01-18] MEDS: ClonazePAM 1 MG TABLET PO SCH ×2 (08:29→20:20)
[2019-01-18 15:00] VITALS: BP 109/58
[2019-01-18] MEDS: ACETAMINOPHEN 325 MG TABLET PO PRN (19:18)
[2019-01-18] MEDS: -LIDODERM PATCH NOTE- MISC SCH (20:19)
[2019-01-18] MEDS: AMITRIPTYLINE HCL 50 MG TABLET PO SCH (20:20)
[2019-01-18] MEDS: NITROFURANTOIN MACROCRYSTAL 50 MG CAPSULE PO SCH (20:21)
[2019-01-18] MEDS: CHLORHEXIDINE GLUCONATE 4% 118 ML TOPICAL LIQUID TP SCH (20:22)
[2019-01-18] MEDS: PRAZOSIN HCL 1 MG CAPSULE PO SCH (20:41)
[2019-01-18] MEDS: SENNA 187 MG TABLET PO SCH (20:41)
[2019-01-18 23:04] VITALS: BP 116/61
[2019-01-19] MEDS: 0.9% SODIUM CHLORIDE 10 ML SYRINGE IVP SCH ×4 (00:37→23:34)
[2019-01-19] MEDS ORDERED: SODIUM CHLORIDE 0.9% 100 ML ONE (01:04)
[2019-01-19] MEDS: VANCOMYCIN HCL 1 GM/D5% WATER 200 ML IV SCH (06:07)
[2019-01-19 07:45] VITALS: BP 102/62
[2019-01-19] MEDS: ACETAMINOPHEN 325 MG TABLET PO PRN (07:49)
[2019-01-19] MEDS: METHOCARBAMOL 750 MG TABLET PO SCH ×4 (08:23→20:19)
[2019-01-19] MEDS: GABAPENTIN 400 MG CAPSULE PO SCH ×4 (08:23→20:19)
[2019-01-19] MEDS: ESCITALOPRAM OXALATE 10 MG TABLET PO SCH (08:23)
[2019-01-19] MEDS: ClonazePAM 1 MG TABLET PO SCH ×2 (08:24→20:18)
[2019-01-19] MEDS: LevETIRAcetam 500 MG TABLET PO SCH ×2 (08:24→20:18)
[2019-01-19] MEDS: DOCUSATE SODIUM 100 MG CAPSULE PO SCH ×2 (08:24→20:22)
[2019-01-19] MEDS: LIDOCAINE 5% TRANSDERMAL PATCH TD SCH (08:24)
[2019-01-19] MEDS: MULTIVITAMINS WITH MINERALS, THERAPEUTIC TABLET PO SCH (08:24)
[2019-01-19] MEDS: OxyCODONE HCL 10 MG ER TABLET PO SCH ×2 (08:24→20:18)
[2019-01-19 11:34] LABS: ANION GAP 10 mmol/L (8-16); CALCIUM, TOTAL 8.4 mg/dL (8.8-10.5); CARBON DIOXIDE 26 mmol/L (22-29); CHLORIDE 100 mmol/L (98-107); CREATININE 0.86 mg/dL (0.60-1.30); GLOMERULAR FILTR. RATE CALC > 60 mL/min (>60); GLUCOSE,RANDOM 114 mg/dL (70-110); POTASSIUM 4.2 mmol/L (3.5-5.1); SODIUM SERUM 136 mmol/L (136-145); UREA NITROGEN, BLOOD 7 mg/dL (7-18)
[2019-01-19 17:00] VITALS: BP 103/69
[2019-01-19] MEDS: -LIDODERM PATCH NOTE- MISC SCH (20:18)
[2019-01-19] MEDS: CHLORHEXIDINE GLUCONATE 4% 118 ML TOPICAL LIQUID TP SCH (20:19)
[2019-01-19] MEDS: NITROFURANTOIN MACROCRYSTAL 50 MG CAPSULE PO SCH (20:19)
[2019-01-19] MEDS: DOXYCYCLINE HYCLATE 100 MG CAPSULE PO SCH (20:19)
[2019-01-19] MEDS: AMITRIPTYLINE HCL 50 MG TABLET PO SCH (20:19)
[2019-01-19] MEDS: SENNA 187 MG TABLET PO SCH (20:22)
[2019-01-19] MEDS: PRAZOSIN HCL 1 MG CAPSULE PO SCH (20:22)
[2019-01-19 23:34] VITALS: BP 107/73
[2019-01-20] MEDS: ACETAMINOPHEN 325 MG TABLET PO PRN ×2 (06:14→20:05)
[2019-01-20] MEDS: 0.9% SODIUM CHLORIDE 10 ML SYRINGE IVP SCH ×2 (08:25→16:00)
[2019-01-20] MEDS: LIDOCAINE 5% TRANSDERMAL PATCH TD SCH (08:25)
[2019-01-20] MEDS: ESCITALOPRAM OXALATE 10 MG TABLET PO SCH (08:26)
[2019-01-20] MEDS: OxyCODONE HCL 10 MG ER TABLET PO SCH ×2 (08:26→20:05)
[2019-01-20] MEDS: GABAPENTIN 400 MG CAPSULE PO SCH ×4 (08:26→20:06)
[2019-01-20] MEDS: DOXYCYCLINE HYCLATE 100 MG CAPSULE PO SCH ×2 (08:26→20:06)
[2019-01-20] MEDS: LevETIRAcetam 500 MG TABLET PO SCH ×2 (08:26→20:05)
[2019-01-20] MEDS: METHOCARBAMOL 750 MG TABLET PO SCH ×4 (08:26→20:06)
[2019-01-20] MEDS: ClonazePAM 1 MG TABLET PO SCH ×2 (08:26→20:05)
[2019-01-20] MEDS: DOCUSATE SODIUM 100 MG CAPSULE PO SCH ×2 (08:29→20:12)
[2019-01-20 08:51] VITALS: BP 120/71
[2019-01-20 14:24] LABS: BASOPHILS % (AUTO) 0.6 % (0.0-2.0); HEMATOCRIT 35.5 % (36-46); HEMOGLOBIN 11.8 g/dL (12.0-16.0); LYMPHOCYTES % (AUTO) 16.6 % (22.0-44.0); MEAN CORPUSCULAR HEMOGLOBIN 27.9 pg (26.0-34.0); MEAN CORPUSCULAR HGB CONC 33.1 G/dL (31.0-37.0); MEAN CORPUSCULAR VOLUME 84 fL (80-100); MONOCYTES # (AUTO) 0.9 K/uL (0.1-1.0); NEUTROPHILS # (AUTO) 8.7 K/uL (1.8-7.7); NEUTROPHILS % (AUTO) 73.8 % (40.0-70.0); PLATELET COUNT (AUTO) 306 K/uL (150-450); RED BLOOD CELL COUNT(AUTO) 4.21 MIL/uL (4.00-5.20); RED CELL DISTRIBUTION WIDTH 14.6 % (11.5-14.5)
[2019-01-20] MEDS ORDERED: AMIT50TA3 PO (14:24)
[2019-01-20 14:36] LABS: C-REACTIVE PROTEIN QUANT 12.89 mg/dL (0.00-0.30)
[2019-01-20] MEDS ORDERED: CLON2 PO (14:57)
[2019-01-20] MEDS ORDERED: DOXY100C PO (14:59)
[2019-01-20] MEDS ORDERED: DOCU-275 PO (14:59)
[2019-01-20] MEDS ORDERED: ESCI10TA PO (15:01)
[2019-01-20] MEDS ORDERED: ERGO500054 PO (15:01)
[2019-01-20] MEDS ORDERED: GABA-533 PO (15:02)
[2019-01-20] MEDS ORDERED: LEVE500T53 PO (15:06)
[2019-01-20] MEDS ORDERED: LIDO700A30 TD (15:06)
[2019-01-20] MEDS ORDERED: METH-372 PO (15:07)
[2019-01-20] MEDS ORDERED: OXYC-627 PO (15:12)
[2019-01-20] MEDS ORDERED: NITR50CA50 PO (15:12)
[2019-01-20] MEDS ORDERED: PRAZ1 PO (15:13)
[2019-01-20] MEDS ORDERED: HYDR2TAB5 PO (15:16)
[2019-01-20 16:06] VITALS: BP 104/63
[2019-01-20 16:09] LABS: ERYTHROCYTE SEDIMENTATION RATE 70 MM/HR (0-20)
[2019-01-20 20:05] VITALS: BP 104/59
[2019-01-20] MEDS: -LIDODERM PATCH NOTE- MISC SCH (20:05)
[2019-01-20] MEDS: AMITRIPTYLINE HCL 50 MG TABLET PO SCH (20:06)
[2019-01-20] MEDS: NITROFURANTOIN MACROCRYSTAL 50 MG CAPSULE PO SCH (20:06)
[2019-01-20] MEDS: PRAZOSIN HCL 1 MG CAPSULE PO SCH (20:12)
[2019-01-20] MEDS: CHLORHEXIDINE GLUCONATE 4% 118 ML TOPICAL LIQUID TP SCH (20:13)
[2019-01-20] MEDS: SENNA 187 MG TABLET PO SCH (20:13)
[2019-01-21] MEDS ORDERED: CLINDAMYCIN HCL 150 MG CAPSULE PO SCH ×3 (02:00→12:00)
[2019-01-21] MEDS ORDERED: CLINDAMYCIN HCL 300 MG CAPSULE PO ONE (02:15)
[2019-01-21] MEDS ORDERED: CLINDAMYCIN HCL 150 MG CAPSULE PO ONE (02:15)
[2019-01-21 02:23] VITALS: BP 100/67
[2019-01-21 07:45] VITALS: BP 116/65
[2019-01-21] MEDS: ESCITALOPRAM OXALATE 10 MG TABLET PO SCH (07:58)
[2019-01-21] MEDS: DOXYCYCLINE HYCLATE 100 MG CAPSULE PO SCH (07:58)
[2019-01-21] MEDS: METHOCARBAMOL 750 MG TABLET PO SCH ×3 (07:58→15:46)
[2019-01-21] MEDS: ClonazePAM 1 MG TABLET PO SCH (07:58)
[2019-01-21] MEDS: LIDOCAINE 5% TRANSDERMAL PATCH TD SCH (07:59)
[2019-01-21] MEDS: OxyCODONE HCL 10 MG ER TABLET PO SCH (07:59)
[2019-01-21] MEDS: LevETIRAcetam 500 MG TABLET PO SCH (07:59)
[2019-01-21] MEDS: GABAPENTIN 400 MG CAPSULE PO SCH ×3 (07:59→15:46)
[2019-01-21 08:00] VITALS: BP 116/65
[2019-01-21] MEDS: ACETAMINOPHEN 325 MG TABLET PO PRN (08:00)
[2019-01-21] MEDS: DOCUSATE SODIUM 100 MG CAPSULE PO SCH (08:00)
[2019-01-21] MEDS ORDERED: ONDANSETRON HCL 4 MG TABLET PO PRN (09:00)
[2019-01-21 15:01] VITALS: BP 126/78
== END 2019-01-21 16:05 | disposition short-term general hospital (02) | DRG 43 ==
LOC: 2WR 14:00
PROC: 05HA33Z Insertion of Infusion Device into Left Brachial Vein, Percutaneous Approach (ICD-10-PCS; principal; 2019-01-14)
DX: G35 Multiple sclerosis (principal); B49 Unspecified mycosis; I80.8 Phlebitis and thrombophlebitis of other sites; N31.9 Neuromuscular dysfunction of bladder, unspecified; E03.9 Hypothyroidism, unspecified; F32.9 Major depressive disorder, single episode, unspecified; F41.9 Anxiety disorder, unspecified; G40.909 Epilepsy, unspecified, not intractable, without status epilepticus; T40.2X5A Adverse effect of other opioids, initial encounter; M21.372 Foot drop, left foot; M21.371 Foot drop, right foot; L03.114 Cellulitis of left upper limb; E66.9 Obesity, unspecified; F40.240 Claustrophobia; G47.00 Insomnia, unspecified; J98.11 Atelectasis; K59.03 Drug induced constipation; I10 Essential (primary) hypertension; Z91.81 History of falling; Z79.899 Other long term (current) drug therapy; Z80.9 Family history of malignant neoplasm, unspecified; Z82.0 Family history of epilepsy and other diseases of the nervous system; Z82.49 Family history of ischemic heart disease and other diseases of the circulatory system; Z83.3 Family history of diabetes mellitus; Z68.33 Body mass index [BMI] 33.0-33.9, adult; Z88.0 Allergy status to penicillin; Z87.440 Personal history of urinary (tract) infections; Z86.72 Personal history of thrombophlebitis; Z79.891 Long term (current) use of opiate analgesic; Z88.8 Allergy status to other drugs, medicaments and biological substances; Z28.21 Immunization not carried out because of patient refusal
CPT/HCPCS: 36569; 70551; 70552; 72141; 72146; 72147; 72156; 72158; 83036; 84145; 85651; 86140; 87040; 87081; 87086; 93971; 97110; 97112; 97116; 97162; 97166; 97530; 97535; 99366; A9585; J2060; J2930; J3301; J3370; J3490; J7050; J7060; Q0162

== ENCOUNTER 2019-01-21 20:02 | Inpatient (IN) | payer OTHER ==
[2019-01-21 19:26] VITALS: BP 93/50
[~2019-01-21 20:02] MED LIST: AMIT50TA3 PO; CLON2 PO; DOCU-275 PO; DOXY100C PO; ERGO500054 PO; ESCI10TA PO; GABA-533 PO; HYDR2TAB5 PO; LEVE500T53 PO; LIDO700A30 TD; METH-372 PO; NITR50CA50 PO; OXYC-627 PO; PRAZ1 PO
[2019-01-21] MEDS ORDERED: METHOCARBAMOL 750 MG TABLET PO PRN (20:30)
[2019-01-21] MEDS ORDERED: GABAPENTIN 400 MG CAPSULE PO SCH (21:00)
[2019-01-21] MEDS: DOCUSATE SODIUM 100 MG CAPSULE PO SCH (21:00)
[2019-01-21] MEDS ORDERED: OxyCODONE HCL 30 MG ER TABLET PO SCH (21:30)
[2019-01-21] MEDS: ClonazePAM 1 MG TABLET PO SCH (21:47)
[2019-01-21] MEDS: LevETIRAcetam 500 MG TABLET PO SCH (21:47)
[2019-01-21] MEDS: OxyCODONE HCL 10 MG ER TABLET PO SCH (21:47)
[2019-01-21] MEDS: DOXYCYCLINE HYCLATE 100 MG CAPSULE PO SCH (21:48)
[2019-01-21] MEDS: GABAPENTIN 400 MG CAPSULE PO SCH (21:48)
[2019-01-21] MEDS: NITROFURANTOIN MACROCRYSTAL 50 MG CAPSULE PO SCH (21:48)
[2019-01-21] MEDS: AMITRIPTYLINE HCL 50 MG TABLET PO SCH (21:48)
[2019-01-21] MEDS ORDERED: OxyCODONE HCL 10 MG ER TABLET PO SCH (22:00)
[2019-01-21] MEDS: PRAZOSIN HCL 1 MG CAPSULE PO SCH (22:00)
[2019-01-21] MEDS ORDERED: MAGNESIUM HYDROXIDE SUSPENSION 30 ML UDCUP PO PRN (23:15)
[2019-01-21] MEDS: HYDROmorphone HCL 2 MG TABLET PO PRN (23:36)
[2019-01-21 23:41] VITALS: BP 102/68
[2019-01-22] VITALS (7 sets, daily range): BP systolic 102–116; BP diastolic 56–81
[2019-01-22] MEDS ORDERED: HYDROmorphone HCL 2 MG TABLET PO PRN
[2019-01-22] MEDS ORDERED: HYDROmorphone HCL 2 MG TABLET PO SCH
[2019-01-22] MEDS: HYDROmorphone HCL 2 MG TABLET PO PRN ×4 (05:20→21:26)
[2019-01-22] MEDS ORDERED: METHOCARBAMOL 750 MG TABLET PO PRN (06:15)
[2019-01-22] MEDS: METHOCARBAMOL 750 MG TABLET PO SCH ×4 (06:23→20:37)
[2019-01-22] MEDS: GABAPENTIN 400 MG CAPSULE PO SCH ×4 (06:23→20:37)
[2019-01-22] MEDS ORDERED: NALOXONE HCL 0.4 MG/ML VIAL IVP PRN (06:30)
[2019-01-22 08:08] LABS: BASOPHILS % (AUTO) 0.6 % (0.0-2.0); EOSINOPHILS % (AUTO) 1.9 % (1.0-6.0); HEMOGLOBIN 10.8 g/dL (12.0-16.0); LYMPHOCYTES # (AUTO) 1.8 K/uL (1.0-4.8); LYMPHOCYTES % (AUTO) 19.8 % (22.0-44.0); MEAN CORPUSCULAR HGB CONC 33.9 G/dL (31.0-37.0); MEAN CORPUSCULAR VOLUME 83 fL (80-100); MONOCYTES # (AUTO) 0.7 K/uL (0.1-1.0); MONOCYTES % (AUTO) 7.4 % (2.0-9.0); NEUTROPHILS # (AUTO) 6.3 K/uL (1.8-7.7); NEUTROPHILS % (AUTO) 70.3 % (40.0-70.0); PLATELET COUNT (AUTO) 339 K/uL (150-450); RED BLOOD CELL COUNT(AUTO) 3.86 MIL/uL (4.00-5.20); RED CELL DISTRIBUTION WIDTH 14.3 % (11.5-14.5)
[2019-01-22 08:16] LABS: ANION GAP 6 mmol/L (8-16); CALCIUM, TOTAL 8.9 mg/dL (8.8-10.5); CARBON DIOXIDE 28 mmol/L (22-29); CHLORIDE 100 mmol/L (98-107); GLOMERULAR FILTR. RATE CALC > 60 mL/min (>60); GLUCOSE,RANDOM 90 mg/dL (70-110); SODIUM SERUM 134 mmol/L (136-145); UREA NITROGEN, BLOOD 6 mg/dL (7-18)
[2019-01-22] MEDS ORDERED: DOCUSATE SODIUM 100 MG CAPSULE PO SCH (09:00)
[2019-01-22] MEDS: FAMOTIDINE 20 MG TABLET PO SCH (09:00)
[2019-01-22] MEDS: DOCUSATE SODIUM 100 MG CAPSULE PO SCH ×2 (09:00→20:43)
[2019-01-22] MEDS: CLINDAMYCIN HCL 150 MG CAPSULE PO SCH ×2 (09:49→12:44)
[2019-01-22] MEDS: OxyCODONE HCL 10 MG ER TABLET PO SCH ×2 (09:50→20:38)
[2019-01-22] MEDS: ESCITALOPRAM OXALATE 10 MG TABLET PO SCH (09:50)
[2019-01-22] MEDS: LevETIRAcetam 500 MG TABLET PO SCH ×2 (09:50→20:36)
[2019-01-22] MEDS: DOXYCYCLINE HYCLATE 100 MG CAPSULE PO SCH (09:51)
[2019-01-22] MEDS: LIDOCAINE 5% TRANSDERMAL PATCH TD SCH (09:53)
[2019-01-22] MEDS: ClonazePAM 1 MG TABLET PO SCH ×2 (10:55→21:26)
[2019-01-22] MEDS: DAPTOMYCIN 500 MG in SODIUM CHLORIDE 0.9% 50 ML IV SCH (18:36)
[2019-01-22] MEDS: NITROFURANTOIN MACROCRYSTAL 50 MG CAPSULE PO SCH (20:36)
[2019-01-22] MEDS: AMITRIPTYLINE HCL 50 MG TABLET PO SCH (20:36)
[2019-01-22] MEDS: -LIDODERM PATCH NOTE- MISC SCH (20:42)
[2019-01-22] MEDS: PRAZOSIN HCL 1 MG CAPSULE PO SCH (20:44)
[2019-01-23 01:26] VITALS: BP 116/63
[2019-01-23 05:47] VITALS: BP 132/86
[2019-01-23] MEDS: HYDROmorphone HCL 2 MG TABLET PO PRN ×5 (05:53→21:49)
[2019-01-23 07:56] VITALS: BP 115/65
[2019-01-23] MEDS: LevETIRAcetam 500 MG TABLET PO SCH ×2 (08:12→20:14)
[2019-01-23] MEDS: ClonazePAM 1 MG TABLET PO SCH ×2 (08:12→20:15)
[2019-01-23] MEDS: ESCITALOPRAM OXALATE 10 MG TABLET PO SCH (08:13)
[2019-01-23] MEDS: GABAPENTIN 400 MG CAPSULE PO SCH ×4 (08:13→20:15)
[2019-01-23] MEDS: OxyCODONE HCL 10 MG ER TABLET PO SCH ×2 (08:13→20:14)
[2019-01-23] MEDS: FAMOTIDINE 20 MG TABLET PO SCH ×2 (08:14→08:30)
[2019-01-23] MEDS: ERGOCALCIFEROL (VIT D2) 50,000 UNITS CAPSULE PO SCH (08:14)
[2019-01-23] MEDS: METHOCARBAMOL 750 MG TABLET PO SCH ×4 (08:14→20:15)
[2019-01-23] MEDS: LIDOCAINE 5% TRANSDERMAL PATCH TD SCH (08:16)
[2019-01-23] MEDS: DOCUSATE SODIUM 100 MG CAPSULE PO SCH ×2 (08:19→20:17)
[2019-01-23 11:17] VITALS: BP 119/69
[2019-01-23 15:30] VITALS: BP 113/83
[2019-01-23] MEDS: DAPTOMYCIN 500 MG in SODIUM CHLORIDE 0.9% 50 ML IV SCH (17:08)
[2019-01-23 20:13] VITALS: BP 121/78
[2019-01-23] MEDS: AMITRIPTYLINE HCL 50 MG TABLET PO SCH (20:14)
[2019-01-23] MEDS: NITROFURANTOIN MACROCRYSTAL 50 MG CAPSULE PO SCH (20:15)
[2019-01-23] MEDS: PRAZOSIN HCL 1 MG CAPSULE PO SCH (20:18)
[2019-01-23] MEDS: -LIDODERM PATCH NOTE- MISC SCH (20:18)
[2019-01-24] MEDS: HYDROmorphone HCL 2 MG TABLET PO PRN ×5 (03:50→19:49)
[2019-01-24 04:25] VITALS: BP 129/79
[2019-01-24 06:56] LABS: BASOPHILS % (AUTO) 0.6 % (0.0-2.0); EOSINOPHILS % (AUTO) 1.9 % (1.0-6.0); HEMATOCRIT 35.2 % (36-46); HEMOGLOBIN 12.1 g/dL (12.0-16.0); LYMPHOCYTES # (AUTO) 1.2 K/uL (1.0-4.8); LYMPHOCYTES % (AUTO) 21.1 % (22.0-44.0); MEAN CORPUSCULAR HEMOGLOBIN 28.5 pg (26.0-34.0); MEAN CORPUSCULAR HGB CONC 34.2 G/dL (31.0-37.0); MEAN CORPUSCULAR VOLUME 83 fL (80-100); MONOCYTES # (AUTO) 0.4 K/uL (0.1-1.0); MONOCYTES % (AUTO) 7.6 % (2.0-9.0); NEUTROPHILS % (AUTO) 68.8 % (40.0-70.0); PLATELET COUNT (AUTO) 328 K/uL (150-450); RED BLOOD CELL COUNT(AUTO) 4.23 MIL/uL (4.00-5.20); RED CELL DISTRIBUTION WIDTH 14.7 % (11.5-14.5)
[2019-01-24 07:21] LABS: ANION GAP 10 mmol/L (8-16); C-REACTIVE PROTEIN QUANT 3.38 mg/dL (0.00-0.30); CALCIUM, TOTAL 8.7 mg/dL (8.8-10.5); CARBON DIOXIDE 25 mmol/L (22-29); CHLORIDE 103 mmol/L (98-107); CREATININE 0.85 mg/dL (0.60-1.30); GLOMERULAR FILTR. RATE CALC > 60 mL/min (>60); GLUCOSE,RANDOM 99 mg/dL (70-110); POTASSIUM 4.3 mmol/L (3.5-5.1); SODIUM SERUM 138 mmol/L (136-145); UREA NITROGEN, BLOOD 6 mg/dL (7-18)
[2019-01-24] MEDS: LevETIRAcetam 500 MG TABLET PO SCH ×2 (08:13→19:49)
[2019-01-24] MEDS: ClonazePAM 1 MG TABLET PO SCH ×2 (08:14→19:49)
[2019-01-24] MEDS: GABAPENTIN 400 MG CAPSULE PO SCH ×4 (08:14→19:48)
[2019-01-24 08:15] VITALS: BP 103/64
[2019-01-24] MEDS: ESCITALOPRAM OXALATE 10 MG TABLET PO SCH (08:15)
[2019-01-24] MEDS: METHOCARBAMOL 750 MG TABLET PO SCH ×4 (08:16→19:48)
[2019-01-24] MEDS: FAMOTIDINE 20 MG TABLET PO SCH (08:17)
[2019-01-24] MEDS: DOCUSATE SODIUM 100 MG CAPSULE PO SCH ×2 (08:17→20:22)
[2019-01-24] MEDS: LIDOCAINE 5% TRANSDERMAL PATCH TD SCH (08:17)
[2019-01-24 08:58] LABS: ERYTHROCYTE SEDIMENTATION RATE 68 MM/HR (0-20)
[2019-01-24] MEDS: OxyCODONE HCL 10 MG ER TABLET PO SCH ×2 (09:28→21:09)
[2019-01-24] MEDS ORDERED: INFLUENZA VIRUS VACCINE QVS 2019-20 (3YR+)/PF 60 MCG/0.5 ML SYRINGE IM ONE (11:30)
[2019-01-24 12:27] VITALS: BP 103/60
[2019-01-24 16:00] VITALS: BP 115/76
[2019-01-24] MEDS: DAPTOMYCIN 500 MG in SODIUM CHLORIDE 0.9% 50 ML IV SCH (17:41)
[2019-01-24 19:49] VITALS: BP 113/76
[2019-01-24] MEDS: NITROFURANTOIN MACROCRYSTAL 50 MG CAPSULE PO SCH (19:49)
[2019-01-24] MEDS: AMITRIPTYLINE HCL 50 MG TABLET PO SCH (19:49)
[2019-01-24] MEDS: -LIDODERM PATCH NOTE- MISC SCH (20:22)
[2019-01-24] MEDS: PRAZOSIN HCL 1 MG CAPSULE PO SCH (20:22)
[2019-01-25] MEDS: HYDROmorphone HCL 2 MG TABLET PO PRN ×6 (00:04→21:52)
[2019-01-25 00:08] VITALS: BP 104/67
[2019-01-25 04:30] VITALS: BP 115/72
[2019-01-25 07:50] VITALS: BP 109/62
[2019-01-25] MEDS: GABAPENTIN 400 MG CAPSULE PO SCH ×4 (07:52→20:29)
[2019-01-25] MEDS: METHOCARBAMOL 750 MG TABLET PO SCH ×4 (07:52→20:30)
[2019-01-25] MEDS: LevETIRAcetam 500 MG TABLET PO SCH ×2 (07:52→20:29)
[2019-01-25] MEDS: ESCITALOPRAM OXALATE 10 MG TABLET PO SCH (07:52)
[2019-01-25] MEDS: FAMOTIDINE 20 MG TABLET PO SCH (07:53)
[2019-01-25] MEDS: LIDOCAINE 5% TRANSDERMAL PATCH TD SCH (07:53)
[2019-01-25] MEDS: DOCUSATE SODIUM 100 MG CAPSULE PO SCH ×2 (07:54→21:00)
[2019-01-25] MEDS: OxyCODONE HCL 10 MG ER TABLET PO SCH ×2 (08:21→20:30)
[2019-01-25] MEDS: ClonazePAM 1 MG TABLET PO SCH ×2 (11:00→20:29)
[2019-01-25 11:38] VITALS: BP 107/62
[2019-01-25 16:04] VITALS: BP 101/66
[2019-01-25] MEDS: DAPTOMYCIN 500 MG in SODIUM CHLORIDE 0.9% 50 ML IV SCH (18:10)
[2019-01-25 20:26] VITALS: BP 120/79
[2019-01-25] MEDS: AMITRIPTYLINE HCL 50 MG TABLET PO SCH (20:28)
[2019-01-25] MEDS: NITROFURANTOIN MACROCRYSTAL 50 MG CAPSULE PO SCH (20:29)
[2019-01-25] MEDS: ACETAMINOPHEN 325 MG TABLET PO PRN (20:30)
[2019-01-25] MEDS: PRAZOSIN HCL 1 MG CAPSULE PO SCH (21:00)
[2019-01-25] MEDS: -LIDODERM PATCH NOTE- MISC SCH (21:00)
[2019-01-26] VITALS (7 sets, daily range): BP systolic 94–116; BP diastolic 54–70
[2019-01-26] MEDS: HYDROmorphone HCL 2 MG TABLET PO PRN ×6 (02:33→22:26)
[2019-01-26 08:00] LABS: APPEARANCE,URINE CLOUDY (CLEAR); BILIRUBIN,URINE NEGATIVE (NEGATIVE); GLUCOSE, URINE (UA) NEGATIVE (NEGATIVE); KETONES,URINE NEGATIVE (NEGATIVE); LEUKOCYTE ESTERASE ,URINE SMALL (NEGATIVE); NITRATE,URINE NEGATIVE (NEGATIVE); OCCULT BLOOD,URINE SMALL (NEGATIVE); PH,URINE 5.5 (5.0-8.0); PROTEIN,URINE TRACE (NEGATIVE); UROBILINOGEN,URINE 0.2 mg/dL (<=1.0)
[2019-01-26] MEDS: DOCUSATE SODIUM 100 MG CAPSULE PO SCH ×2 (08:27→20:11)
[2019-01-26] MEDS: FAMOTIDINE 20 MG TABLET PO SCH (08:27)
[2019-01-26] MEDS: LIDOCAINE 5% TRANSDERMAL PATCH TD SCH (08:27)
[2019-01-26] MEDS: ESCITALOPRAM OXALATE 10 MG TABLET PO SCH (08:28)
[2019-01-26] MEDS: OxyCODONE HCL 10 MG ER TABLET PO SCH ×2 (08:28→20:13)
[2019-01-26] MEDS: ClonazePAM 1 MG TABLET PO SCH (08:28)
[2019-01-26] MEDS: GABAPENTIN 400 MG CAPSULE PO SCH ×4 (08:28→20:12)
[2019-01-26] MEDS: METHOCARBAMOL 750 MG TABLET PO SCH ×4 (08:28→20:12)
[2019-01-26] MEDS: LevETIRAcetam 500 MG TABLET PO SCH ×2 (08:28→20:11)
[2019-01-26 09:06] LABS: BACTERIA,URINE Few /HPF (None Seen); WBC,URINE 51-100 /HPF (0-5)
[2019-01-26 09:07] LABS: SQUAMOUS EPITHELIAL CELL,UR Moderate /LPF (None Seen)
[2019-01-26] MEDS: SULFAMETHOX/TRIMETH DS 800-160 MG/TABLET PO SCH ×2 (14:34→20:11)
[2019-01-26] MEDS: DAPTOMYCIN 500 MG in SODIUM CHLORIDE 0.9% 50 ML IV SCH (18:22)
[2019-01-26] MEDS ORDERED: SODIUM CHLORIDE 0.9% 500 ML IV ONE (18:27)
[2019-01-26] MEDS: NITROFURANTOIN MACROCRYSTAL 50 MG CAPSULE PO SCH (20:13)
[2019-01-26] MEDS: AMITRIPTYLINE HCL 50 MG TABLET PO SCH (20:14)
[2019-01-26] MEDS: PRAZOSIN HCL 1 MG CAPSULE PO SCH (21:00)
[2019-01-26] MEDS: -LIDODERM PATCH NOTE- MISC SCH (21:39)
[2019-01-27] MEDS: HYDROmorphone HCL 2 MG TABLET PO PRN ×6 (02:53→22:04)
[2019-01-27 02:57] VITALS: BP 111/74
[2019-01-27] MEDS: ACETAMINOPHEN 325 MG TABLET PO PRN ×2 (03:30→23:29)
[2019-01-27 07:30] VITALS: BP 95/70
[2019-01-27] MEDS: LIDOCAINE 5% TRANSDERMAL PATCH TD SCH (09:00)
[2019-01-27] MEDS: DOCUSATE SODIUM 100 MG CAPSULE PO SCH ×2 (09:00→21:00)
[2019-01-27] MEDS: FAMOTIDINE 20 MG TABLET PO SCH (09:00)
[2019-01-27] MEDS: METHOCARBAMOL 750 MG TABLET PO SCH ×4 (09:05→22:04)
[2019-01-27] MEDS: GABAPENTIN 400 MG CAPSULE PO SCH ×4 (09:06→22:04)
[2019-01-27] MEDS: ESCITALOPRAM OXALATE 10 MG TABLET PO SCH (09:06)
[2019-01-27] MEDS: SULFAMETHOX/TRIMETH DS 800-160 MG/TABLET PO SCH ×2 (09:07→22:03)
[2019-01-27] MEDS: LevETIRAcetam 500 MG TABLET PO SCH ×2 (09:07→22:03)
[2019-01-27] MEDS: OxyCODONE HCL 10 MG ER TABLET PO SCH ×2 (09:08→23:25)
[2019-01-27 11:32] VITALS: BP 94/67
[2019-01-27 15:18] VITALS: BP 96/65
[2019-01-27 16:05] LABS: BASOPHILS % (AUTO) 1.4 % (0.0-2.0); EOSINOPHILS % (AUTO) 2.3 % (1.0-6.0); HEMATOCRIT 32.9 % (36-46); HEMOGLOBIN 10.9 g/dL (12.0-16.0); LYMPHOCYTES # (AUTO) 1.2 K/uL (1.0-4.8); LYMPHOCYTES % (AUTO) 22.1 % (22.0-44.0); MEAN CORPUSCULAR HEMOGLOBIN 27.3 pg (26.0-34.0); MEAN CORPUSCULAR HGB CONC 33.2 G/dL (31.0-37.0); MEAN CORPUSCULAR VOLUME 82 fL (80-100); MONOCYTES # (AUTO) 0.5 K/uL (0.1-1.0); MONOCYTES % (AUTO) 10.5 % (2.0-9.0); NEUTROPHILS # (AUTO) 3.3 K/uL (1.8-7.7); NEUTROPHILS % (AUTO) 63.7 % (40.0-70.0); PLATELET COUNT (AUTO) 275 K/uL (150-450); RED BLOOD CELL COUNT(AUTO) 4.01 MIL/uL (4.00-5.20); RED CELL DISTRIBUTION WIDTH 14.6 % (11.5-14.5)
[2019-01-27 16:48] LABS: ANION GAP 10 mmol/L (8-16); CALCIUM, TOTAL 8.9 mg/dL (8.8-10.5); CARBON DIOXIDE 27 mmol/L (22-29); CHLORIDE 101 mmol/L (98-107); CREATININE 0.98 mg/dL (0.60-1.30); GLOMERULAR FILTR. RATE CALC > 60 mL/min (>60); GLUCOSE,RANDOM 102 mg/dL (70-110); POTASSIUM 4.2 mmol/L (3.5-5.1); SODIUM SERUM 138 mmol/L (136-145); UREA NITROGEN, BLOOD 6 mg/dL (7-18)
[2019-01-27 16:53] LABS: ALANINE AMINOTRANSFERASE 86 U/L (12-78); ALBUMIN 2.9 g/dL (3.4-5.0); ALKALINE PHOSPHATASE 169 U/L (46-116); ASPARTATE AMINOTRANSFERASE 60 U/L (15-37); BILIRUBIN,TOTAL 0.2 mg/dL (0.1-1.0); TOTAL PROTEIN, SERUM 7.7 g/dL (6.4-8.2)
[2019-01-27] MEDS ORDERED: BARIUM SULFATE 0.1% SUSPENSION 450 ML BOTTLE ONE (18:41)
[2019-01-27 19:47] VITALS: BP 106/65
[2019-01-27] MEDS: -LIDODERM PATCH NOTE- MISC SCH (21:00)
[2019-01-27] MEDS: PRAZOSIN HCL 1 MG CAPSULE PO SCH (21:00)
[2019-01-27] MEDS ORDERED: IOVERSOL 320 MG/ML 100 ML VIAL ONE (21:31)
[2019-01-27] MEDS ORDERED: SODIUM CHLORIDE 0.9% 100 ML ONE (21:31)
[2019-01-27] MEDS: AMITRIPTYLINE HCL 50 MG TABLET PO SCH (22:03)
[2019-01-27] MEDS: NITROFURANTOIN MACROCRYSTAL 50 MG CAPSULE PO SCH (22:04)
[2019-01-27 23:20] VITALS: BP 124/73
[2019-01-28 05:10] VITALS: BP 130/64
[2019-01-28] MEDS: HYDROmorphone HCL 2 MG TABLET PO PRN ×4 (05:37→18:24)
[2019-01-28 07:39] VITALS: BP 121/48
[2019-01-28] MEDS: METHOCARBAMOL 750 MG TABLET PO SCH ×4 (08:54→20:04)
[2019-01-28] MEDS: FAMOTIDINE 20 MG TABLET PO SCH (08:54)
[2019-01-28] MEDS: ESCITALOPRAM OXALATE 10 MG TABLET PO SCH (08:55)
[2019-01-28] MEDS: SULFAMETHOX/TRIMETH DS 800-160 MG/TABLET PO SCH (08:55)
[2019-01-28] MEDS: GABAPENTIN 400 MG CAPSULE PO SCH ×4 (08:55→20:05)
[2019-01-28] MEDS: LevETIRAcetam 500 MG TABLET PO SCH ×2 (08:55→20:05)
[2019-01-28] MEDS: OxyCODONE HCL 10 MG ER TABLET PO SCH ×2 (08:55→20:05)
[2019-01-28] MEDS: LIDOCAINE 5% TRANSDERMAL PATCH TD SCH (08:56)
[2019-01-28] MEDS: DOCUSATE SODIUM 100 MG CAPSULE PO SCH ×2 (09:00→20:08)
[2019-01-28 12:16] VITALS: BP 100/98
[2019-01-28 15:46] VITALS: BP 116/71
[2019-01-28] MEDS: ACETAMINOPHEN 325 MG TABLET PO PRN (18:25)
[2019-01-28] MEDS: -LIDODERM PATCH NOTE- MISC SCH (20:05)
[2019-01-28] MEDS: NITROFURANTOIN MACROCRYSTAL 50 MG CAPSULE PO SCH (20:05)
[2019-01-28] MEDS: AMITRIPTYLINE HCL 50 MG TABLET PO SCH (20:05)
[2019-01-28] MEDS: PRAZOSIN HCL 1 MG CAPSULE PO SCH (20:09)
[2019-01-28 21:11] VITALS: BP 100/61
[2019-01-29] VITALS (7 sets, daily range): BP systolic 94–112; BP diastolic 54–73
[2019-01-29] MEDS: HYDROmorphone HCL 2 MG TABLET PO PRN ×5 (00:11→20:22)
[2019-01-29] MEDS: OxyCODONE HCL 10 MG ER TABLET PO SCH ×2 (08:27→22:00)
[2019-01-29] MEDS: LIDOCAINE 5% TRANSDERMAL PATCH TD SCH (08:29)
[2019-01-29] MEDS: DOCUSATE SODIUM 100 MG CAPSULE PO SCH ×2 (08:29→20:25)
[2019-01-29] MEDS: METHOCARBAMOL 750 MG TABLET PO SCH ×4 (08:30→20:21)
[2019-01-29] MEDS: ESCITALOPRAM OXALATE 10 MG TABLET PO SCH (08:31)
[2019-01-29] MEDS: FAMOTIDINE 20 MG TABLET PO SCH (08:32)
[2019-01-29] MEDS: GABAPENTIN 400 MG CAPSULE PO SCH ×4 (08:32→20:21)
[2019-01-29] MEDS: LevETIRAcetam 500 MG TABLET PO SCH ×2 (08:32→20:21)
[2019-01-29] MEDS ORDERED: CLON2 PO (13:55)
[2019-01-29] MEDS ORDERED: HYDR2 PO (14:00)
[2019-01-29] MEDS ORDERED: GABA-531 PO (14:02)
[2019-01-29] MEDS ORDERED: METH750T4 PO (14:03)
[2019-01-29] MEDS ORDERED: AMIT50TA3 PO (14:04)
[2019-01-29] MEDS ORDERED: OXYC10 PO (14:05)
[2019-01-29] MEDS ORDERED: DOCU-275 PO (14:15)
[2019-01-29] MEDS ORDERED: LEVE500T53 PO (14:16)
[2019-01-29] MEDS ORDERED: PRAZ1 PO (14:17)
[2019-01-29] MEDS ORDERED: ESCI10TA PO (14:19)
[2019-01-29] MEDS ORDERED: NITR50CA50 PO (14:20)
[2019-01-29] MEDS: ONDANSETRON HCL 4 MG/2 ML VIAL IVP PRN (19:07)
[2019-01-29] MEDS: AMITRIPTYLINE HCL 50 MG TABLET PO SCH (20:21)
[2019-01-29] MEDS: NITROFURANTOIN MACROCRYSTAL 50 MG CAPSULE PO SCH (20:21)
[2019-01-29] MEDS: PRAZOSIN HCL 1 MG CAPSULE PO SCH (20:24)
[2019-01-29] MEDS: -LIDODERM PATCH NOTE- MISC SCH (20:25)
[2019-01-30] MEDS: HYDROmorphone HCL 2 MG TABLET PO PRN ×4 (00:15→13:42)
[2019-01-30 04:57] VITALS: BP 103/69
[2019-01-30 06:24] LABS: BASOPHILS % (AUTO) 0.5 % (0.0-2.0); EOSINOPHILS % (AUTO) 0.9 % (1.0-6.0); HEMATOCRIT 32.2 % (36-46); HEMOGLOBIN 10.8 g/dL (12.0-16.0); MEAN CORPUSCULAR HEMOGLOBIN 27.6 pg (26.0-34.0); MEAN CORPUSCULAR HGB CONC 33.5 G/dL (31.0-37.0); MEAN CORPUSCULAR VOLUME 82 fL (80-100); MONOCYTES # (AUTO) 0.5 K/uL (0.1-1.0); MONOCYTES % (AUTO) 5.9 % (2.0-9.0); NEUTROPHILS # (AUTO) 7.1 K/uL (1.8-7.7); NEUTROPHILS % (AUTO) 81.7 % (40.0-70.0); PLATELET COUNT (AUTO) 301 K/uL (150-450); RED BLOOD CELL COUNT(AUTO) 3.92 MIL/uL (4.00-5.20); RED CELL DISTRIBUTION WIDTH 14.8 % (11.5-14.5)
[2019-01-30 06:25] LABS: ANION GAP 8 mmol/L (8-16); CALCIUM, TOTAL 8.5 mg/dL (8.8-10.5); CARBON DIOXIDE 29 mmol/L (22-29); CHLORIDE 98 mmol/L (98-107); CREATININE 1.03 mg/dL (0.60-1.30); GLOMERULAR FILTR. RATE CALC > 60 mL/min (>60); GLUCOSE,RANDOM 95 mg/dL (70-110); POTASSIUM 4.4 mmol/L (3.5-5.1); SODIUM SERUM 135 mmol/L (136-145); UREA NITROGEN, BLOOD 7 mg/dL (7-18)
[2019-01-30 07:45] VITALS: BP 111/60
[2019-01-30] MEDS: ONDANSETRON HCL 4 MG/2 ML VIAL IVP PRN (08:22)
[2019-01-30] MEDS: OxyCODONE HCL 10 MG ER TABLET PO SCH (08:29)
[2019-01-30] MEDS: GABAPENTIN 400 MG CAPSULE PO SCH ×2 (08:29→12:21)
[2019-01-30] MEDS: FAMOTIDINE 20 MG TABLET PO SCH (08:29)
[2019-01-30] MEDS: ESCITALOPRAM OXALATE 10 MG TABLET PO SCH (08:29)
[2019-01-30] MEDS: ERGOCALCIFEROL (VIT D2) 50,000 UNITS CAPSULE PO SCH (08:29)
[2019-01-30] MEDS: LevETIRAcetam 500 MG TABLET PO SCH (08:29)
[2019-01-30] MEDS: METHOCARBAMOL 750 MG TABLET PO SCH ×2 (08:29→12:20)
[2019-01-30] MEDS: LIDOCAINE 5% TRANSDERMAL PATCH TD SCH (08:31)
[2019-01-30] MEDS: DOCUSATE SODIUM 100 MG CAPSULE PO SCH (08:37)
[2019-01-30] MEDS: ACETAMINOPHEN 325 MG TABLET PO PRN (09:35)
[2019-01-30 11:50] VITALS: BP 106/61
== END 2019-01-30 14:00 | disposition home or self-care (01) | DRG 720 ==
LOC: 6N 21:01 → 5S 01-22 08:45 → 4E 01-22 18:00
PROVIDERS: ADMIT Internal Medicine; ATTEND Internal Medicine
DX: A41.9 Sepsis, unspecified organism (principal); E44.0 Moderate protein-calorie malnutrition; F11.20 Opioid dependence, uncomplicated; G35 Multiple sclerosis; I82.619 Acute embolism and thrombosis of superficial veins of unspecified upper extremity; L03.114 Cellulitis of left upper limb; N39.0 Urinary tract infection, site not specified; G40.909 Epilepsy, unspecified, not intractable, without status epilepticus; G89.4 Chronic pain syndrome; Z88.0 Allergy status to penicillin; Z88.8 Allergy status to other drugs, medicaments and biological substances
CPT/HCPCS: 74177; 84145; 85651; 86140; 87040; 87086; 90686; G0238; G0378; J0878; J2405; J7040; J7050